=== PATIENT | female | born 1995 | race Caucasian/White ===

== ENCOUNTER 2022-01-13 13:08 | Emergency (ER) | payer SELFPAY ==
--- NOTE | ~2022-01-13 | US_ITS ---
EXAMINATION: US abdomen limited DATE: 01/13/2022 21:15 INDICATION: Transaminitis TECHNIQUE: Multiple grayscale and Doppler ultrasound images of the abdomen were obtained. COMPARISON: None available FINDINGS: The head and body of the pancreas are normal. The pancreatic tail is obscured by bowel gas. The liver is normal with normal echogenicity and echotexture. No surface nodularity. Normal hepatope makeda flow in the main portal vein. The gallbladder is normal with no abnormal wall thickening, pericho lecystic fluid or stones. The normal common bile duct measures 3 mm. There was no sonographic Whiting sign. IMPRESSION: 1. Normal sonographic study of the gallbladder. Reviewed, dictated and finalized at location F. OR PROJECT MANAGER
--- NOTE | ~2022-01-13 | XR_ITS ---
EXAMINATION: XR chest 2V DATE: 01/13/2022 18:59 INDICATION: Leukocytosis TECHNIQUE: PA and lateral views of the chest are obtained. COMPARISON: None available FINDINGS: The lungs are free of acute opacities. No pleural effusion or pneumothorax. The cardiomedia stinal silhouette is normal. The visualized bones and soft tissues are unremarkable. IMPRESSION: 1. No acute cardiopulmonary abnormality. Reviewed, dictated and finalized at location F. RALOGY PROFESSOR
--- NOTE | ~2022-01-13 | CT_ITS ---
EXAMINATION: CT brain wo con DATE: 01/13/2022 17:16 INDICATION: Altered mental state after noncompliance with schizophrenic medications TECHNIQUE: Computed tomography (CT) of the head was performed without intravenous contrast. The mA wa s adjusted according to patient size. Iterative reconstruction technique was employed. Exam dose: 60 5.33 mGy-cm total exam DLP. COMPARISON: 10/22/2012 CT brain FINDINGS: No intracranial mass lesion or hemorrhage or cerebrovascular accident. No midline shift or mass effect. Normal ventricular size. Normal andrea-white matter differentiation. No subdural or epidural hematoma. No fracture or bone destruction of the cranial vault. The mastoid air cells and included paranasal si nuses are unremarkable. IMPRESSION: Negative Reviewed, dictated and finalized at Location A. Reviewed, dictated and finalized at location B. OTIONAL REPRESENTATIVE IMPRESSION: Negative
[2022-01-13 13:25] VITALS: BP 137/92; PULSE 122; RESP 18; TEMP 37.1; O2SAT 99
--- NOTE | 2022-01-13 13:40 | PC.NURSE ---
tried to contact pt's mother to obtain more information, but no answer and no voice message available to leave a voicemail.
[2022-01-13 15:04] LABS: Hematocrit 42.8 % (37.0-47.0); Hemoglobin 14.7 g/dL (12.0-15.0); Mean Corpuscular HGB Conc 34.3 g/dl (32-36); Mean Corpuscular Hemoglobin 29.6 pg (26-34); Mean Corpuscular Volume 86.1 fl (80-100); Mean Platelet Volume 10.2 fl (7.4-10.4); Platelet Count Result 447 k/mm3 (150-375); Red Blood Count 4.97 M/mm3 (4.2-5.4); Red Cell Distribution Width 13.3 % (11.5-14.5); White Blood Count 20.4 K/mm3 (4.5-10.0)
[2022-01-13 15:14] LABS: Alanine Aminotransferase 56 U/L (6-35); Albumin Level 5.3 g/dL (3.5-5.1); Alkaline Phosphatase 90 U/L (38-126); Anion Gap 20 mmol/L (8-16); Aspartate Amino Transferase 43 U/L (14-36); Bilirubin,Total 2.3 mg/dL (0.2-1.3); Blood Urea Nitrogen 15 mg/dL (7-17); Calcium 9.7 mg/dL (8.4-10.2); Carbon Dioxide 23 mmol/L (22-30); Chloride 100 mmol/L (98-107); Estimated Glomerular Filt Rate > 60; Glucose 90 mg/dL (65-110); Potassium 3.2 mmol/L (3.4-5.0); Sodium 143 mmol/L (137-145)
[2022-01-13 15:15] LABS: Ethanol < 10 mg/dL (<10)
[2022-01-13 16:17] LABS: Lymphocytes Absolute Manual 3.46 K/mm3 (1.1-4.5); Monocytes Absolute Manual 1.42 K/mm3 (0.1-0.90); Monocytes Percent Manual 7 % (3-9); Neutrophils Percent Manual 76 % (46-73); Platelet Estimate Increased (Adequate); Schistocytes None Seen (NORMAL); Total Cells Counted 100
--- NOTE | 2022-01-13 16:26 | PC.NURSE ---
pt received Zyprexa 5 mg IM to left deltoid per order pt has been wandering, responding to internal stimuli. pt non directional at this time no violent behavior noted.
[2022-01-13] MEDS: WATER, STERILE FOR INJECTION 10 ML VIAL XX (16:30)
[2022-01-13] MEDS: OLANZapine 10 MG INJ VIAL 5 MG IM (16:30)
[2022-01-13 17:39] VITALS: BP 120/88; PULSE 106; RESP 20; O2SAT 98
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
--- NOTE | 2022-01-13 19:00 | PC.NURSE ---
PT REFUSING PO POTASSIUM AT THIS TIME
[2022-01-13 19:01] LABS: Creatine Kinase 263 U/L (30-135); Lipase 64 U/L (23-300)
[2022-01-13 19:28] LABS: Appearance Urine Clear (Clear); Bilirubin Urine 2+ (Negative); Blood Urine 2+ (Negative); Color Urine Yellow (Yellow); Glucose Urine UA Negative (Negative); Ketones Urine 2+ mg/dL (Negative); Leukocyte Esterase Ur Negative LEU/UL (Negative); Nitrate Urine Negative (Negative); Protein Urine 1+ mg/dL (Negative); Specific Grav Ur >= 1.030 (1.001-1.035); Urobilinogen Urine 0.2 mg/dL (<2.0)
[2022-01-13 19:36] LABS: Mucus Urine Heavy /lpf; Squamous Epithelial Cell Urine Few /hpf (Few); WBC Urine 0-3 /hpf
[2022-01-13 19:37] LABS: Add Urine Microscopic? YES
[2022-01-13 19:55] LABS: Amphetamine Screen Urine Negative (Negative); Barbiturate Screen Urine Negative (Negative); Benzodiazepines Screen Urine Negative (Negative); Cannabinoid Screen Urine Positive (Negative); Cocaine Screen Urine Negative (Negative); Methadone Screen Urine Negative (Negative); Opiate Screen Urine Negative (Negative); Phencyclidine Screen Urine Negative (Negative)
[2022-01-13 20:06] LABS: SARS-CoV-2 RNA PCR Negative
--- NOTE | 2022-01-14 00:44 | PC.NURSE ---
crisis at bedside
--- NOTE | 2022-01-14 04:36 | PC.NURSE ---
Assumed care of pt. Pt low risk for SI/HI. pt in room safe with safety plan. Awaiting acceptance. pt will be involuntary transfer.
[2022-01-14 05:59] VITALS: BP 137/90; PULSE 78; RESP 18; O2SAT 95
--- NOTE | 2022-01-14 06:00 | PC.NURSE ---
NARRATIVE ON INVOLUNTARY, UPDATED VITALS AND CXR FAXED TO [facility] PER THEIR REPORT
--- NOTE | 2022-01-14 07:37 | PC.NURSE ---
Patient asked multiple times to please stay in room.
[2022-01-14 07:39] LABS: Basophils Absolute Auto 0.2 K/mm3 (0.0-0.1); Basophils Percent Auto 1.2 % (0.2-1.2); Eosinophils Absolute Auto 0.4 K/mm3 (0-0.3); Eosinophils Percent Auto 2.5 % (0-4.4); Hematocrit 44.4 % (37.0-47.0); Hemoglobin 15.2 g/dL (12.0-15.0); Immature Granulocyte Absolute 0.06 K/mm3 (0.00-0.031); Immature Granulocyte Percent A 0.4 % (0-0.5); Lymphocytes Absolute Auto 4.92 K/mm3 (0.9-3.2); Lymphocytes Percent Auto 33.9 % (18.3-44.2); Mean Corpuscular HGB Conc 34.2 g/dl (32-36); Mean Corpuscular Hemoglobin 29.5 pg (26-34); Mean Platelet Volume 10.7 fl (7.4-10.4); Monocytes Percent Auto 6.8 % (2.6-8.5); Neutrophils Percent Auto 55.2 % (45.5-73.1); Platelet Count Result 401 k/mm3 (150-375); Red Blood Count 5.16 M/mm3 (4.2-5.4); Red Cell Distribution Width 13.2 % (11.5-14.5); White Blood Count 14.5 K/mm3 (4.5-10.0)
--- NOTE | 2022-01-14 07:43 | PC.NURSE ---
Patient to this RN you better watch out. I'm strong. I'm trying to preserve my energy but you need to watch it . Security called to come to dept due to safety concerns for staff.
--- NOTE | 2022-01-14 07:49 | PC.NURSE ---
Security in dept with patient.
--- NOTE | 2022-01-14 08:10 | PC.NURSE ---
Patient sitting quietly in room after breakfast tray was delivered. Security released.
[2022-01-14 09:15] VITALS: BP 130/80; PULSE 80; RESP 16; TEMP 36.9; O2SAT 96
--- NOTE | 2022-01-14 09:55 | PC.NURSE ---
SOPHIA NOVAK MOTHER OF PT CALLED FOR AN UPDATE ON PT ADMISSION/TRANSFER STATUS. [phone]
--- NOTE | 2022-01-14 11:03 | PC.NURSE ---
[facility] accepted BLS transfer to [facility] Bed 204-A ETA 11:30 Trip # [id number]
== END 2022-01-14 11:51 ==
PROVIDERS: Emergency Medicine; Physician Assistant; Emergency Provider Emergency Medicine
DX: F29 Unspecified psychosis not due to a substance or known physiological condition (principal); F31.9 Bipolar disorder, unspecified; Z20.822 Contact with and (suspected) exposure to COVID-19
CPT/HCPCS: 36415; 70450; 71046; 76705; 80053; 80307; 81001; 81025; 82550; 83690; 84443; 85025; 96372; 99285; U0003; U0005

== ENCOUNTER 2022-05-11 09:06 | Emergency (ER) | payer OTHER, SELFPAY ==
--- NOTE | 2022-05-11 09:12 | ED.URI ---
HPI - URI/Sore Throat General Chief Complaint: Upper Respiratory Infection Stated Complaint: Sinus/Vomit Time Seen by Provider: 05/11/22 09:12 Source: patient Mode of arrival: ambulatory Limitations: no limitations History of Present Illness HPI Narrative: Terry is a 27-year-old female patient presenting to the clinic today with complaints of sinus congestion, sore throat, and vomiting x 5 days. She reports she vomited once this morning and once 2 days ago. She denies any known fever or chills. States she has a runny nose, mild sore throat, and feels as though her glands are swollen. MD elicited complaint: sore throat, rhinorrhea and nasal congestion Related Data Allergies Allergy/AdvReac Type Severity Reaction Status Date / Time amoxicillin Allergy Intermediate Rash Verified 05/11/22 09:22 Review of Systems Review of Systems: Pertinent positives per HPI. Patient denies any fever, chills, rash, headache, visual changes, dizziness, cough, shortness of breath, chest pain, palpitations, nausea, vomiting, diarrhea, constipation, abdominal pain, or any urinary issues. [facility] Past Medical History Medical History History of bipolar disorder Social History Social History Substance use: unknown Comments At the time of my signature, I reviewed and agree with the nursing past medical, surgical, social, and family history. There is no relevant family history pertinent to the patient complaint. Exam Narrative: General: Well-developed, well nourished, in no apparent distress Head: Normocephalic, atraumatic Eyes: Pupils equally round and reactive to light bilaterally, EOM intact, sclera and conjunctive clear, no discharge, lids normal Ears: TMs intact and clear, ear canals clear, no drainage, grossly hearing normal. Nose: Nares patent, clear nasal discharge, mild inflammation, no sinus tenderness. Mouth: Oral pharynx without lesions or masses, good dentition, MMM. Oropharynx mildly red Neck: Supple, trachea midline, no enlargement of anterior or posterior cervical nodes, no thyroid masses or goiter palpable. Cardio: Regular rate and rhythm, s1 and s2 normal, no murmur appreciated. Resp: Clear to auscultation bilaterally, no rhonchi, rales, wheezing or rubs Course Course Emergency Course: Portions of this record may have been created with voice recognition software. Level of Care: Express Care Visit Vital Signs Vital signs: Vital signs reviewed MDM - URI/Sore Throat MDM Narrative Medical decision making narrative: At the time of visit patient is resting comfortably on the exam table. Strep screen was obtained was negative in the clinic today. Strep screen was negative in the clinic today. I suspect patient has URI. Will send in prescription for some Zofran for nausea. Supportive measures were discussed with the patient she voiced understanding of discharge instructions and agrees to treatment plan. Differential Diagnosis Differential diagnosis: Likely upper respiratory infection, sinusitis, viral infection, influenza, pharyngitis and other (COVID) Discharge Plan Discharge Clinical Impression: Upper respiratory infection, Pharyngitis, Nausea & vomiting Patient Disposition: Home, Self-Care Condition: Stable Instructions: Antibiotic Form, Pharyngitis (ED), Upper Respiratory Infection (ED), Acute Nausea and Vomiting (ED) Additional Instructions: Strep screen was negative in the clinic today. We will send strep for culture and if this comes back positive we will contact you in place you on antibiotics at that time Take prescription medications only as prescribed-Zofran for nausea Increase fluids and stay well hydrated Tylenol/motrin for pain/fever Flonase and OTC antihistamines as directed Vicks vapor rub to open sinuses Sinus rinses for congestion Cepacol spray, coug
[2022-05-11 09:15] VITALS: BP 107/72; PULSE 87; RESP 18; TEMP 37.4; O2SAT 98
== END 2022-05-11 09:37 | disposition home or self-care (01) ==
PROVIDERS: Emergency Provider Nurse Practitioner Family
DX: J02.9 Acute pharyngitis, unspecified (principal); R11.2 Nausea with vomiting, unspecified
CPT/HCPCS: 87081; 87880; 99213; G0463

== ENCOUNTER 2022-09-22 15:53 | Emergency (ER) | payer OTHER, SELFPAY ==
[2022-09-22 15:57] VITALS: BP 133/97; PULSE 98; RESP 20; TEMP 37.1; O2SAT 100
--- NOTE | 2022-09-22 16:22 | ED.SKABFB ---
HPI - Skin/Abscess/Foreign Bdy General Chief complaint: Skin/Abscess/Foreign Body Stated complaint: Insect Bite Source: patient and RN notes reviewed History of Present Illness HPI narrative: 27 yo F presents to urgent care stating she was bitten by a bat and a brown recluse spider. Pt is tearful and erratic. Pt states she was sleeping outside about 4-5 days ago because she wanted some fresh air and woke up with what she believes is bite deng on her. Pt states she saw a bat flying above her at one point and believes it bit her right posterior shoulder. Pt states the bite deng were open a few days ago but they have closed up by now. Pt states she also believes she was bit on the left cheek by a brown recluse spider b/c she has been bitten before and she knows this is what it is. Pt states her father told her she was going to if she doesn't get treated for rabies. Pt states she had a headache one morning and she vomited x 1, 3 days in a row, which has subsided. Pt is very concerned she is going to . Denies any chest pain, SOB, abdominal pain, fevers, chills, or dysuria. Related Data Allergies Allergy/AdvReac Type Severity Reaction Status Date / Time amoxicillin Allergy Intermediate Rash Verified 09/22/22 16:18 Review of Systems Review of Systems: CONSTITUTIONAL: Denies fever, chills, or sweats. EYES: Denies visual changes, redness, or discharge. ENT: Denies otalgia and sore throat CARDIOVASCULAR: Denies chest pain, palpitations, or edema. RESPIRATORY: Denies cough or dyspnea. GASTROINTESTINAL: Denies abdominal pain, nausea, vomiting, or diarrhea. GENITOURINARY: Denies dysuria or hematuria. SKIN: Insect bites MUSCULOSKELETAL: Denies back pain, joint pain, or myalgia. NEUROLOGIC: Denies headache, numbness, or weakness. Pertinent positives per HPI. PMFSH Past Medical History Medical History History of bipolar disorder Social History Social History Substance use: unknown Exam Narrative: GENERAL: This is a well-nourished, well-developed patient, in no apparent distress. HEAD: normocephalic, atraumatic. EYES: Sclera clear/white. Vision is grossly intact. EARS: External ears normal, auditory canals clear and without drainage. Hearing grossly intact. NOSE: External nose normal with no obvious nasal discharge, nares without redness, no rhinorrhea. THROAT: Mucous membranes moist, posterior pharynx clear. NECK: Neck supple, non-tender without lymphadenopathy, masses or thyromegaly. CARDIOVASCULAR: Regular rate and rhythm without murmurs, gallops, or rubs. RESPIRATORY: Clear to auscultation. Breath sounds equal bilaterally. No wheezes, rales, or rhonchi. SKIN: erythremic, papules to face and upper back, consistent with cystic acne; 2 specifically to her right upper trapezius area about 3.5 cm apart that pt states is where a bat bit her and 1 papule noted to left cheek that pt is concerned is a brown recluse bite. NEURO: awake, alert, and oriented to person, place and time. There were no obvious focal neurologic abnormalities. PSYCH: anxious, tearful, paranoid. having flight of ideas intermittently, but easily re-directed. EXTREMITIES: No clubbing, cyanosis, or edema. No joint tenderness, effusion, or edema noted. BACK: Nontender without deformity or crepitus. No flank tenderness. Course Course Level of Care: Express Care Visit Vital Signs Vital signs: Vital Signs Temperature 98.7 F 09/22/22 15:57 Pulse Rate 98 09/22/22 15:57 Respiratory Rate 20 09/22/22 15:57 Blood Pressure 133/97 H 09/22/22 15:57 Pulse Oximetry 100 09/22/22 15:57 Oxygen Delivery Room Air 09/22/22 15:57 Temperature 98.7 F 09/22/22 15:57 Pulse Rate 98 09/22/22 15:57 Respiratory Rate 09/22/22 15:57 Blood Pressure 133/97 H 09/22/22 15:57 Pulse Oximetry 100 09/22/22 15
== END 2022-09-22 16:29 | disposition home or self-care (01) ==
PROVIDERS: Emergency Provider Nurse Practitioner Family
DX: T63.331A Toxic effect of venom of brown recluse spider, accidental (unintentional), initial encounter (principal)
CPT/HCPCS: 99213; G0463

== ENCOUNTER 2022-09-23 08:40 | Emergency (ER) | payer OTHER, SELFPAY ==
[2022-09-23 08:58] VITALS: BP 125/90; PULSE 100; RESP 16; TEMP 37; O2SAT 100
--- NOTE | 2022-09-23 09:19 | ED.SKABFB ---
HPI - Skin/Abscess/Foreign Bdy General Chief complaint: Skin/Abscess/Foreign Body Stated complaint: bitten by bat? Time Seen by Provider: 09/23/22 09:00 Source: patient and old records reviewed Mode of arrival: ambulatory Limitations: no limitations History of Present Illness HPI narrative: Patient is a 27 y/o female, with PMH of BPD, who presents to the ED with c/o concern for bat bite. Patient reports she was camping and slept outside a few days ago. She states she saw bats flying low before she went to sleep. She then woke up the next morning with what she believed to be multiple bat bites in her right upper back. She also believes a black bit her in her right upper back in the same location. She did not visibly see either of these happen. She was seen at an urgent care yesterday and was rx'd doxycycline. At that time, patient was also reporting a brown recluse spider bite to her left facial cheek. History is inconsistent. Patient reports she was sleeping outside anywhere from 4 days to a week and a half ago. She states the bites were more open, but she has scratched them and they have healed now. Patient is requesting rabies vaccine. Patient is tearful, anxious, paranoid. She states she does not want to . She states she was told she was going to if she did not not get the rabies vaccine. Related Data Allergies Allergy/AdvReac Type Severity Reaction Status Date / Time amoxicillin Allergy Intermediate Rash Verified 09/23/22 09:02 Review of Systems Review of Systems: CONSTITUTIONAL: Denies fever, chills, or sweats. SKIN: See HPI. NEUROLOGIC: Denies headache, numbness, or weakness. PSYCHIATRIC: See HPI. All systems reviewed & are unremarkable except as noted in HPI and below PMFSH Past Medical History Medical History History of bipolar disorder Social History Social History Substance use: unknown Exam Narrative: GENERAL: Mildly disheveled appearing, anxious, well-nourished, non-toxic, in no acute distress. HEAD: Normocephalic, atraumatic. NECK: Supple. No adenopathy, no masses. RESPIRATORY: Airway patent, respirations nonlabored. Clear to auscultation bilaterally, no rales, rhonchi, wheezing. CARDIOVASCULAR: Regular rate and rhythm without murmurs, rubs, or gallops. Radial pulses 2+ and equal bilaterally. MUSCULOSKELETAL: Moves all extremities. Strength/ROM intact without gross deformities. SKIN: Warm, dry, normal color. No rashes. Erythematous papules, nodules, small pustules to face and upper back consistent with acne/cystic acne. Area to right upper back/posterior shoulder consistent with cystic acne as well with 3 larger nodule type lesions in area of concern where patient reporting that and spider bit her. No active drainage. No deeper wounds. No evident bite deng. No significant surrounding erythema. No necrosis. NEURO: A&O X3. Speech clear. Cranial nerves II-XII grossly intact. Steady gait. No ataxic movements. PSYCHIATRIC: Flight of ideas, anxious, paranoid, tearful. Course Vital Signs Vital signs: Vital Signs Temperature 98.6 F 09/23/22 08:58 Pulse Rate 100 09/23/22 08:58 Respiratory Rate 16 09/23/22 08:58 Blood Pressure 125/90 09/23/22 08:58 Pulse Oximetry 100 09/23/22 08:58 Oxygen Delivery Room Air 09/23/22 08:58 Temperature 98.6 F 09/23/22 08:58 Pulse Rate 100 09/23/22 08:58 Respiratory Rate 16 09/23/22 08:58 Blood Pressure 125/90 09/23/22 08:58 Pulse Oximetry 100 09/23/22 08:58 Oxygen Delivery Room Air 09/23/22 08:58 MDM - Skin/Abscess/Foreign Bdy MDM Narrative Medical decision making narrative: Patient presented to ED with concern for bat bite, wanting rabies vaccine. History inconsistent, patient frequently changing her story. Exam of region of concern consistent with cystic acne. Does not a
== END 2022-09-23 11:20 | disposition home or self-care (01) ==
PROVIDERS: Emergency Provider Physician Assistant
DX: Z20.3 Contact with and (suspected) exposure to rabies (principal); T14.8XXD Other injury of unspecified body region, subsequent encounter; W57.XXXD Bitten or stung by nonvenomous insect and other nonvenomous arthropods, subsequent encounter
CPT/HCPCS: 99281

== ENCOUNTER 2022-09-23 14:57 | Emergency (ER) | payer OTHER, SELFPAY ==
[2022-09-23 15:57] VITALS: BP 153/84; PULSE 94; RESP 18; TEMP 36.8; O2SAT 99
--- NOTE | 2022-09-23 17:55 | ED.ANIMALBIT ---
HPI - Animal Bite General Chief Complaint: Animal Bite Stated Complaint: needs rabies vaccine Time Seen by Provider: 09/23/22 17:17 Source: patient Mode of arrival: ambulatory Limitations: other (poor historian) History of Present Illness HPI narrative: This is a 27-year-old female that presents to the emergency department for a rabies vaccine. Reports about a week ago she was bit by a bat on the right shoulder. She remembers seeing the bat bite her. [facility] and was prompted to be seen here for a vaccination. Denies fever, erythema or edema. Related Data Allergies Allergy/AdvReac Type Severity Reaction Status Date / Time amoxicillin Allergy Intermediate Rash Verified 09/23/22 09:02 Review of Systems Review of Systems: CONSTITUTIONAL: Denies fever SKIN: Denies rash or itching. MUSCULOSKELETAL: Denies joint pain, or myalgia. All systems reviewed & are unremarkable except as noted in HPI and below PMFSH Past Medical History Medical History History of bipolar disorder Social History Social History Substance use: unknown Exam Narrative: GENERAL: Well-appearing, disheveled, and in no acute distress. HEAD: Normocephalic, atraumatic. EYES: EOMI. CHEST: No respiratory distress. HEART: Regular rate EXTREMITIES: Normal range of motion. No edema. SKIN: Warm, dry, no rash. NEURO: No focal deficits. Alert and oriented x3. PSYCH: Normal mood and affect Course Course Emergency Course: Patient agrees with plan of care Vital Signs Vital signs: Vital Signs Temperature 98.3 F 09/23/22 15:57 Pulse Rate 94 09/23/22 15:57 Respiratory Rate 18 09/23/22 15:57 Blood Pressure 153/84 H 09/23/22 15:57 Pulse Oximetry 99 09/23/22 15:57 Oxygen Delivery Room Air 09/23/22 15:57 Temperature 98.3 F 09/23/22 15:57 Pulse Rate 94 09/23/22 15:57 Respiratory Rate 18 09/23/22 15:57 Blood Pressure 153/84 H 09/23/22 15:57 Pulse Oximetry 99 09/23/22 15:57 Oxygen Delivery Room Air 09/23/22 15:57 Procedures Other Procedure Procedure 1: Other Procedure: Half of rabies vaccination and rabies immunoglobulin was administered into the site of injury by myself MDM - Animal Bite MDM Narrative Medical decision making narrative: Patient presents to the emergency department after possible rabies exposure for the vaccination. Patient was given vaccination as well as immunoglobulin. Will be contacted by Marcelina for further vaccination series. She was given warnings to return to the ER Differential Diagnosis Differential diagnosis: Likely bite by animal and rabies contact Critical Care Time Critical Care Time Critical Care Time: No Discharge Plan Discharge Clinical Impression: Need for rabies vaccination Patient Disposition: Home, Self-Care Condition: Stable Instructions: Animal Bite (ED) Additional Instructions: Return to the emergency department if you experience fever, redness or swelling of your wound, abnormal drainage from your wound, or any other symptoms that are concerning to you. You will be contacted by Marcelina for further vaccination series which you will need on 09/26, 09/30 and 10/07 Prescriptions: No Action doxycycline monohydrate 100 mg capsule 100 mg PO BID Qty: 14 0RF hydroxyzine HCl 25 mg tablet 25 mg PO TID MDD 6 tabs (150 mg) PRN (Reason: anxiety) Qty: 30 0RF Rx Instructions: May take 1-2 tabs if needed for anxiety. Follow-up/Referrals: PHYSICIAN,SUPPLY CHAIN BUSINESS ANALYST [Primary Care Provider] -
[2022-09-23] MEDS: RABIES IMMUNE GLOBULIN/PF 1,500 UNITS/5 ML VIAL 1360 UNITS IM (18:58)
[2022-09-23] MEDS: RABIES VACCINE (RABAVERT) 2.5 UNITS VIAL IM (19:00)
== END 2022-09-23 19:32 | disposition home or self-care (01) ==
PROVIDERS: Emergency Provider Physician Assistant
DX: Z29.14 Encounter for prophylactic rabies immune globulin (principal); Z23 Encounter for immunization
CPT/HCPCS: 90471; 90675; 96372; 99283; 90375

== ENCOUNTER 2022-10-07 14:27 | Outpatient (RCR) | payer OTHER, SELFPAY ==
--- NOTE | 2022-09-26 12:21 | PC.NURSE ---
AMBULATORY TO LAB DRAW STATION FOR SECOND RABIES VACCINE AFTER POSSIBLE BAT EXPOSURE. WAS SEEN IN ED 09/23/2022 AND RECEIVED FIRST DOSE IN SERIES. DENIES HEADACHE, NAUSEA, VOMITING AND DIARRHEA. STATES IS FEELING FINE . TO RETURN Sep FOR NEXT VACCINE - VOICES UNDERSTANDING.
== END 2022-12-25 23:59 | disposition home or self-care (01) ==
LOC: ANHVASCINF 14:27
PROVIDERS: Visit Provider Physician Assistant
DX: Z20.3 Contact with and (suspected) exposure to rabies (principal); Z29.14 Encounter for prophylactic rabies immune globulin
CPT/HCPCS: 90471; 90675